=== PATIENT | female | born 1985 | race African-American/Black ===

== ENCOUNTER 2018-07-21 15:28 | Inpatient (IN) ==
[2018-07-21] MEDS ORDERED: TORADOL IV ONE (16:05)
[2018-07-21 16:50] LABS: INR 0.94; PROTIME 13.1 Seconds (11.0-16.0)
[2018-07-21 16:51] LABS: PTT 32.3 Seconds (22.3-41.8)
[2018-07-21 17:01] LABS: URINE SOURCE CLEAN CATCH
[2018-07-21 17:02] LABS: BILIRUBIN URINE NEGATIVE (NEGATIVE); BLOOD URINE NEGATIVE (NEGATIVE); CLARITY SLIGHTLY CLOUDY (CLEAR); COLOR YELLOW; GLUCOSE URINE NEGATIVE (NEGATIVE); KETONE URINE NEGATIVE (NEGATIVE); LEUKOCYTES URINE NEGATIVE (NEGATIVE); NITRITE URINE NEGATIVE (NEGATIVE); PROTEIN URINE NEGATIVE (NEGATIVE); SP GRAVITY URINE 1.005; UROBILINOGEN URINE NORMAL
[2018-07-21 17:05] LABS: URINE BACTERIA 2+ /HFP; URINE CAST NONE SEEN /LPF; URINE CRYSTAL NONE SEEN /HPF; URINE EPITHELIAL CELLS >10 /HPF (<10); URINE RBC <10 /HPF (<10); URINE WBC <10 /HPF (<10); URINE YEAST NONE SEEN /HPF
[2018-07-21 17:07] LABS: AGAP 11; ALBUMIN 4.2 g/dL (3.5-5.0); ALKALINE PHOSPHATASE 76 U/L (32-104); BUN 6 mg/dL (8-22); CALCIUM 8.4 mg/dL (8.8-10.2); CHLORIDE 105 mmol/L (98-107); COSMO 277; CREATININE 0.6 mg/dL (0.5-0.9); ESTIMATED GFR > 60; GLUCOSE 93 mg/dL (70-104); GOT 13 U/L (10-30); GPT 8 U/L (10-36); SODIUM 140 mmol/L (136-145); TCO2 24 mmol/L (25-35); TOTAL PROTEIN 7.7 g/dL (6.3-8.3)
[2018-07-21 17:10] LABS: BASO# 0.04 X1000 (0.0-0.2); BASO% 0.7 % (0.0-0.8); EOS# 0.18 X1000 (0.0-0.7); HEMATOCRIT 26.2 % (37.0-47.0); HEMOGLOBIN 7.4 g/dL (12.0-16.0); IMM GRAN# 0.01 X1000 (0.0-0.04); IMM GRAN% 0.2 % (0.0-0.5); LYMPH# 2.27 X1000 (1.2-3.4); MCH 15.4 PG (27-31); MCHC 28.2 g/dL (33-37); MCV 54.6 FL (81-99); MONO# 0.27 X1000 (0.11-0.59); MONO% 4.5 % (1.7-9.3); NEUT# 3.21 X1000 (1.4-6.5); NEUT% 53.6 % (42.2-75.2); PLT 191 X1000 (130-400); RDW 19.2 % (11.5-14.5); WBC 5.98 X1000 (4.8-10.8)
[2018-07-21] MEDS ORDERED: ZOFRAN IM ONE (17:22)
[2018-07-21] MEDS ORDERED: ZOFRAN IV ONE (17:29)
--- NOTE | 2018-07-21 17:36 | PROVIDER DOCUMENTATION ---
This chart was entered by Rosy Blair Scribe, acting as scribe for Jerry Wick MD. HPI-General Adult - General Chief Complaint: Return/Recheck Stated Complaint: HEADACHE Time Seen by Provider: 07/21/18 15:40 Source: patient Allergies/Adverse Reactions: Patient Allergies Allergy/AdvReac Type Severity Reaction Status Date / Time fexofenadine HCl * Allergy Intermediate inflammatio Verified 03/17/18 10:41 [From Cate-D 12 Hour] n pseudoephedrine HCl * Allergy Intermediate inflammatio Verified 03/17/18 10:41 [From Cate-D 12 Hour] n Home Medications: Home Medication List Medication Instructions Recorded Confirmed Last Taken Type Brompheniramin/PE/Dextromethor 5 ml PO Q6H #100 liquid 03/18/18 Unknown Rx [Diuf-Radtcu-Bqu Liquid] CefUROXIME [Ceftin] 250 mg PO Q12HR #14 tab 03/18/18 Unknown Rx Folic Acid 1 mg PO DAILY #30 tab 03/18/18 Unknown Rx Iron Carbonyl/Ascorbic Acid 1 ea PO DAILY #30 tab 03/18/18 Unknown Rx [Icar-C] Naproxen [EC-Naprosyn] 500 mg PO BID PRN #30 tablet. 03/28/18 Unknown Rx - History of Present Illness -Gen Adult Nature of Presenting Problems: Patient is a 33 year old female who presents to the ED with headache. Patient states headache started 3 days ago. Patient states she was seen at [facility] for the headache and received a shot then the headache resolved. Patient states the headache returned this morning. Patient states having blurred vision with headache. Patient states symptoms of weakness, dizziness, nausea, diarrhea, and shortness of breath that have been present for "a while". Patient states history of fibroids and vaginal bleeding. Location of Pain/Injury: reports: head Pain Radiation: reports: no radiation Quality of Pain: reports: aching Severity: reports: mild Onset/Duration: reports: 3 days ago Timing: reports: intermittent Context/Activities at Onset: reports: light activity Modifying Factors: improves with: nothing Associated Symptoms: reports: other (blurred vision) Similar Symptoms Previously?: Yes Recently seen or treated by another doctor?: No Review of Systems - Adult - REVIEW OF SYSTEMS - ADULT Constitutional: reports: no symptoms reported Eyes: reports: blurred vision. denies: decreased vision, double vision Ears, Nose, Mouth & Throat: reports: no symptoms reported Cardiovascular: reports: no symptoms reported Respiratory: reports: shortness of breath. denies: cough, wheezing Gastrointestinal: reports: diarrhea, nausea. denies: abdominal pain, vomiting Genitourinary: reports: no symptoms reported Musculoskeletal: reports: muscle weakness. denies: back pain, muscle aches, neck pain Integumentary: reports: no symptoms reported Neurological: reports: dizziness/vertigo (dizziness), headache/migraines (ROD). denies: numbness, seizure, syncope Psychiatric: reports: no symptoms reported Endocrine: reports: no symptoms reported Hematologic/Lymphatic: reports: no symptoms reported Allergic/Immunologic: reports: no symptoms reported All Other Systems: Reviewed and Negative Past History - Adult - PAST MEDICAL HISTORY-ADULT Review of Records: reports: Nursing Assessment Review, Medications Reviewed, Social history reviewed & non-contributory. Major Childhood Illnesses: reports: denies history Cardiovascular: reports: HTN Respiratory: reports: asthma Gastrointestinal: reports: denies history Obstetrical/Gynecological: reports: - spont/elective, fibroids, other (placental abruption) Genitourinary: reports: denies history Musculoskeletal: reports: fibromyalgia Neurological: reports: denies history Psychiatric: reports: bipolar, depression, suicide attempt Endocrine/Immune: reports: denies history Other Conditions: reports: other (fibromyalgia) Additional History: Frequent ER visits - PRIOR SURGERIES/PROCEDURES Surgical/Procedure History: reports: , other (breast reduction) - PRIOR HOSPITALIZATIONS Prior Hospitalizations: reports: for other non-related - IMMUNIZATION STATUS Childhood Immunizations: See Nurse Assessment Flu Vaccine: NUTD - FAMILY HISTORY Family History: reviewed, not pertinent - SOCIAL HISTORY Smoking: denies Substance Use: denies Living Situation: family Physical Exam-General - PHYSICAL EXAM-ADULT Initial Vital Signs Reviewed: Yes - CONSTITUTIONAL General Appearance: alert, no apparent distress - RESPIRATORY Respiratory: chest non-tender, lungs clear, normal breath sounds - CARDIOVASCULAR Cardiovascular: normal peripheral pulses, regular rate, rhythm - GASTROINTESTINAL (ABDOMEN) Abdominal Exam: normal bowel sounds, soft, tenderness (suprapubic and epiga stric) - SKIN Integumentary: normal color, normal turgor, warm/dry - NEUROLOGIC Neurologic: grossly normal - PSYCHIATRIC Psych/Mental Status: normal mood/affect, oriented x 3 Progress - PLAN OF CARE/RESULTS Progress/Plan/Lab Results: Vital Signs - 8 hr 07/21/18 15:34 Temperature 98 F Pulse Rate 86 Respiratory Rate 18 Blood Pressure 165/102 O2 Sat by Pulse Oximetry 100 A/P: Anemia secondary to blood losss. Pt has hx of uterine fibroids, will be evaluated for hysterectomy. Will transfuse Pt and admit for abs. Vitasl stable. Result Diagrams: 07/21/18 16:30 07/21/18 16:30 - CONSULTS/PCP/HOSPITALIST Notification #1 *Consult/PCP/Hospitalist*: [place] Time Discussed: 17:28 Consult Disposition: Admit Departure - Departure Date of Disposition Decision: 07/21/18 Time of Disposition Decision: 17:28 DIAGNOSIS: Anemia Disposition: ADMITTED INPATIENT 09 Certified Medical Emergency: Emergent Condition: Good Referrals and Follow-Ups: Fidel Alejandre MD [Primary Care Provider] - - Critical Care Note This patient required my direct & personal management of CC.: No Attestation - Physician/ MARCELA Attestation Patient care was provided by Advanced Practice Provider:: No The physician spent face to face time with patient:: Yes Advanced Practice Provider documentation review:: Supervising physician onsite and consulted in the evaluation and care of this patient. The physician did have a face to face encounter with the patient. This chart was documented by the indicated scribe, (Rosy Blair Scribe) and accurately reflects the services I performed and decisions made by me, Jerry Wick MD, as attested by the provider's signature.
[2018-07-21] MEDS ORDERED: TORADOL IV PRN (18:11)
[2018-07-21 18:35] LABS: IRON SATURATION 2 %; TIBC 510 ug/dL; TOTAL IRON 11 ug/dL (49-151); UNBOUND IRON 499 ug/dL (112-346)
--- NOTE | 2018-07-21 18:46 | HISTORY AND PHYSICAL ---
PRIMARY CARE PHYSICIAN: Dr. Fidel Alejandre. CHIEF COMPLAINT: Headache, weakness, dizziness, shortness of breath for the last 3 days that has progressively worsened. HISTORY OF PRESENT ILLNESS: This is a 33-year-old female who presents to [facility] ER with complaints of a headache that started 3 days ago. States she was seen at [facility] for her headache and received a shot and it resolved. She stated that the headache returned this morning along with some blurred vision. She has also been having for awhile some weakness, dizziness, nausea and shortness of breath. She has a history of fibroids and vaginal bleeding and states the last time she was here she was given an appointment for consultation with [employer] which she kept and they placed her on control pills but that has not helped any of her symptoms. Today she presents with a hemoglobin of 7.4, hematocrit 26.2 and so she will be admitted for symptomatic anemia, iron deficient history for further evaluation and treatment. PAST MEDICAL HISTORY: Of iron deficiency anemia, putative protein S deficiency. PAST SURGICAL HISTORY: None. FAMILY HISTORY: Reviewed and noncontributory. SOCIAL HISTORY: She currently lives with family. Denies any tobacco, alcohol or illicit drug use. ALLERGIES: To fexofenadine and pseudoephedrine. HOME MEDICATIONS: Will need to be verified, reviewed and then restarted. We will place an order for nursing to update and confirm. LABORATORY DATA: Showed a white blood cell count of 5.98, hemoglobin 7.4, hematocrit 26.2, platelets 191,000, PT and INR of 13.1 and 0.94. Sodium 140, potassium 4, chloride 105, CO2 24, BUN of 6, creatinine 0.6, glucose 93. Urinalysis with negative nitrites, negative white blood cells with 2+ bacteria, also noted to have greater than 10 epithelial cells. REVIEW OF SYSTEMS: She denied any fever, chills, blurred vision. She was positive for dizziness, weakness, headache, shortness of breath. Denied any chest pain or cough. Was also positive for some nausea and diarrhea, denied any burning or hurting with urination. Had a last menstrual period July 10 with heavy vaginal bleeding noted. PHYSICAL EXAMINATION: On arrival she had a temperature of 98 degrees, pulse 86, respirations 18, blood pressure was 165/102, currently 131/95. GENERAL: This is a 33-year-old female who is lying in the bed and answers questions appropriately. HEENT: Normocephalic, atraumatic. Normal ENT inspection. Oropharynx and nares are clear. Pupils are equal, round, reactive to light and accommodation. Extraocular movements are intact. NECK: Normal inspection, normal range of motion. LUNGS: Clear to auscultation bilaterally with equal lung expansion and chest wall movement. HEART: With regular rate and rhythm. No murmurs, rubs, or gallops. ABDOMEN: Soft, nontender, nondistended. Bowel sounds are present x4 quadrants. MUSCULOSKELETAL: 5/5 strength x4 extremities. NEUROLOGICAL: The cranial nerves 2-12 are grossly intact. ASSESSMENT: 1. Symptomatic anemia. 2. Iron deficiency anemia. 3. Headache. OUR PLAN: She will be admitted to the medical unit. Placed on a regular diet. O2 per protocol. We will give her 3 units of packed red blood cells after she is typed and screened. We will check a urine culture. She received Toradol 30 mg IV x1 in the emergency room. We will recheck a CBC, BMP in the a.m. Again we need to update and confirm her home medications and further orders after being seen by attending. Dictated by CECILIO Rinaldi for Anam Freed MD cc: MD Anam Coffey MD
[2018-07-21] MEDS ORDERED: TYLENOL PO ONE (18:57)
[2018-07-21] MEDS ORDERED: BENADRYL PO ONE (18:57)
[2018-07-21] MEDS ORDERED: NS 500 ML IV SCH (19:00)
[2018-07-21] MEDS ORDERED: NORCO-7.5 PO PRN (19:13)
[2018-07-21] MEDS ORDERED: PROVERA PO SCH (19:15)
[2018-07-21] MEDS ORDERED: TYLENOL PO PRN (19:16)
[2018-07-21] MEDS ORDERED: ZOFRAN IV PRN (19:16)
[2018-07-21 22:44] LABS: FERRITIN 4 ng/mL (13-150)
[2018-07-22 06:31] LABS: BASO# 0.04 X1000 (0.0-0.2); BASO% 0.6 % (0.0-0.8); EOS# 0.22 X1000 (0.0-0.7); EOS% 3.3 % (0.0-10.0); HEMATOCRIT 28.6 % (37.0-47.0); HEMOGLOBIN 8.1 g/dL (12.0-16.0); IMM GRAN# 0.02 X1000 (0.0-0.04); IMM GRAN% 0.3 % (0.0-0.5); LYMPH# 3.21 X1000 (1.2-3.4); LYMPH% 47.6 % (20.5-51.1); MCH 16.4 PG (27-31); MCHC 28.3 g/dL (33-37); MCV 57.8 FL (81-99); MONO# 0.45 X1000 (0.11-0.59); MONO% 6.7 % (1.7-9.3); NEUT% 41.5 % (42.2-75.2); PLT 181 X1000 (130-400); RBC 4.95 XMIL (4.2-5.4); RDW 22.9 % (11.5-14.5); WBC 6.74 X1000 (4.8-10.8)
[2018-07-22 06:44] LABS: AGAP 12; BUN 10 mg/dL (8-22); CALCIUM 8.5 mg/dL (8.8-10.2); CHLORIDE 108 mmol/L (98-107); COSMO 285; CREATININE 0.6 mg/dL (0.5-0.9); ESTIMATED GFR > 60; GLUCOSE 110 mg/dL (70-104); POTASSIUM 3.6 mmol/L (3.5-5.1); SODIUM 143 mmol/L (136-145); TCO2 24 mmol/L (25-35)
[2018-07-22 07:18] LABS: EOS 5 % (1-10); LYMPHS 46 % (21-51); SEGS 49 % (42-75)
[2018-07-22] MEDS ORDERED: FOLIC ACID 1 MG in NS 50 ML IV SCH (12:00)
--- NOTE | 2018-07-22 13:17 | DISCHARGE SUMMARY ---
ADMISSION DATE: 07/21/2018 DISCHARGE DATE: 07/22/2018 SUBJECTIVE: She seems to be doing well. Her blood count has improved. She feels a little bit stronger. No further significant bleeding. OBJECTIVE: Vital Signs: Blood pressure is 103/58, heart rate of 74, respiratory 16, temperature 98.1 degrees, 97% on room air. Cardiovascular: Regular rate and rhythm. Pulmonary: Bilateral breath sounds. Clear to auscultation. GI: Soft, nontender, nondistended. Bowel sounds are positive. LABORATORY DATA: White count 6, hemoglobin and hematocrit 8 and 28, platelets of 181,000. Basic was normal. PROBLEM LIST: 1. Symptomatic anemia related to chronic gynecological blood loss. Overall she seems to be better. Hemoglobin and hematocrit has increased to 8 and 28. She will be discharged on iron. There is some concern over a fibroid being perpetually bleeding issue. We are trying to get a [employer] consult. Get her set up with that for likely hysterectomy. 2. Recommendations as far as hormone therapy, she reports a history of protein S deficiencies, so I am reluctant to start anything that may make her hypercoagulable, but that is just pending her workup. 3. We will continue to follow. cc: Anam Freed MD
[2018-07-22] MEDS ORDERED: VENOFER 200 MG in NS 150 ML IV ONE (14:30)
--- NOTE | 2018-07-22 14:47 | CONSULTATION ---
DATE OF CONSULTATION: 07/22/2018 IMPRESSION: 1. Anemia microcytic and chronic. 2. Uterine fibroids with menorrhagia. BRIEF HISTORY: Patient is a 33-year-old black female, G7, P3, A4, who presented with headaches. She has a history of chronically low blood counts. She was checked and noted to be anemic, and was transfused 1 unit of packed red blood cells. She was consulted by the medical doctor. The patient reports that her anemia is long-standing. She has also known for a period of time that she has had a uterine fibroid. The last ultrasound of that was in March of 2018 that showed a uterus that was 11 weeks size and a uterine fibroid that was 6 cm. PAST MEDICAL HISTORY: Significant for anemia. PAST SURGICAL HISTORY: x3. PAST OB HISTORY: G 7, P3, A4. [employer] HISTORY: Menarche at age 13. She reports that her cycles are roughly every 30 days, and she reports that she does have heavy cycles lasting 5 to 6 days. FAMILY HISTORY: Significant for sarcoidosis, and also unknown to the patient some type of blood disorder. SOCIAL HISTORY: Tobacco use none. Alcohol use none. MEDICATIONS: Iron. ALLERGIES: Cate D. PHYSICAL EXAMINATION: Vital Signs: Height 5 feet 5 inches, weight 217 pounds. Temperature 98.1 degrees, blood pressure 103/58, pulse 74, and respirations 16. HEENT: Pupils equal, round, and react light accommodation. Extraocular movements intact. Oropharynx clear. Neck: Supple. No thyromegaly. Lungs: Clear to auscultation. Heart: Regular rate and rhythm. Abdomen: Bowel sounds positive. Soft and nontender. [place] that her uterus was enlarged, but was nontender. Extremities: No clubbing, cyanosis, or edema noted. Neurologic: Cranial nerves 2-12 grossly intact. Motor 5/5. DTRs 2+ bilaterally. LABORATORY: On the patient's lab work, before transfusing her hemoglobin was 7.4, hematocrit 26.2, and platelet count 191,000. What was significant was the MCV that was 54.6, significant for probably a long chronic anemia of iron deficiency. The patient's coagulation studies were normal. Chemistry profile was normal with low calcium and low iron. Folate was also low. ASSESSMENT/PLAN: 1. Anemia appears to be chronic and iron-deficient anemia. The patient received 1 unit of blood, feels better, and will be discharged home after transfusion of iron. Discussed with patient that she will probably need to see a physical therapy director to further evaluate her chronic anemia. 2. Uterine fibroids with menorrhagia. Discussed with patient that she should follow up for [employer] care, and will have her set up after her discharge. The patient is in need of a Pap smear and discussed with patient about medical options for trying to help her menorrhagia besides surgery. cc: MD Anam Alba III, MD
[2018-07-22 15:53] VITALS: BP 125/86
== END 2018-07-22 16:27 | disposition home or self-care (01) | DRG 812 ==
LOC: P.ED 15:28 → P.MEDSURG 17:58
PROVIDERS: ATTEND Internal Medicine
CPT/HCPCS: 36430; 80048; 80053; 81001; 82607; 82728; 82746; 83540; 83550; 85025; 85302; 85610; 85730; 86850; 86900; 86901; 86920; 87088; 94761; 96374; 96375; 99285; A9270; J1756; J1885; J2405; J7040; P9016